=== PATIENT | male | born 1955 | race Caucasian/White ===

== ENCOUNTER 2023-02-16 18:15 | Emergency (ER) | payer MEDICARE, SELFPAY ==
[2023-02-16 18:23] VITALS: BP 169/90; PULSE 85; RESP 18; TEMP 36.7; O2SAT 99; BMI 20.9
--- NOTE | 2023-02-16 19:05 | ED.EYEPROB ---
HPI - Eye Problem General Chief complaint: Eye Problems Stated complaint: metal in eye Time Seen by Provider: 02/16/23 18:51 Source: patient Mode of arrival: ambulatory Limitations: no limitations History of Present Illness HPI Narrative: 67-year-old male presenting with right eye injury. Patient was working with metal when a fragment flew into his right eye. Since then, patient has been having irritation, pain discomfort. No photo or phonophobia. He has had tearing. Patient was wearing eye protection. His tetanus is not up-to-date and he does not wish to have a tetanus vaccine today. He has no allergies to medication is. Patient offers no acute complaints at this time other than is IP MD chief complaint: eye pain, eye redness and eye injury Onset (ago): hour(s) Onset description: sudden Duration: constant Location: right eye Eye Symptoms: redness, pain and foreign body sensation Mechanism: occurred while hammering/grinding Severity: moderate Related Data Previous Rx's Medication Instructions Recorded polymyxin B sulfate 10,000 2 drp ophthalmic (eye) QID 7 days 02/16/23 unit-trimethoprim 1 mg/mL eye #10 mL drops (Polytrim) Allergies Allergy/AdvReac Type Severity Reaction Status Date / Time No Known Allergies Allergy Verified 02/16/23 18:25 Physical Exam Vital Signs: Vital Signs: Last Vital Signs Temp 98.1 F 02/16/23 18:23 Pulse 85 02/16/23 18:23 Resp 18 02/16/23 18:23 BP 169/90 H 02/16/23 18:23 Pulse Ox 99 02/16/23 18:23 O2 Del Method Room Air 02/16/23 18:23 BMI result Body Mass Index 20.9 GEN: Well developed, no acute distress, alert, oriented HEENT: Normocephalic, atraumatic, normal external ears, nose appears normal Eyes: Bilateral conjunctival injection, corneal abrasion in the middle of the pupil. There is no foreign body present, fluorescein exam consistent with an abrasion, no foreign bodies identified with lid eversion of both upper and lower lids. Neck: Supple, no lymphadenopathy Respiratory: Talks in complete sentences, no respiratory distress Extremities: No clubbing cyanosis or edema Neurologic: No focal neurologic deficits, cranial nerves 2-12 intact, gait normal Skin: No rash Course Course Course Narrative: 67-year-old male presents with foreign body to right eye. On my evaluation, there is no foreign body present. For corneal abrasion was identified on examination. Patient does not wish to have his tetanus updated today. Will provide patient with prescription for topical antibiotics. Patient was instructed to follow-up with an applications specialist. Medical Decision Making Medical Decision Making MDM Narrative: Patient has a corneal abrasion from a foreign body that is no longer present. It was not removed by me. Patient will start topical antibiotics and follow-up with Ophthalmology. Differential Diagnosis Differential Diagnoses: The differential diagnosis associated with the presentation includes (Foreign body, corneal abrasion) Independent Historian Clinical information obtained from an independent historian. History obtained from or confirmed by: Spouse Discharge Plan Discharge Clinical Impression: Corneal abrasion Patient Disposition: Home, Self-Care Instructions: Corneal Abrasion (ED) Prescriptions: New polymyxin B sulf-trimethoprim [Polytrim] 10,000 unit- 1 mg/mL drops 2 drp ophthalmic (eye) QID 7 Days Qty: 10 0RF Rx Instructions: while awake; do not exceed 6 doses in 24 hours Referrals: Nolberto Stauffer [Physician] - 1 day
== END 2023-02-16 19:32 | disposition home or self-care (01) ==
PROVIDERS: Emergency Provider Emergency Medicine
DX: S05.01XA Injury of conjunctiva and corneal abrasion without foreign body, right eye, initial encounter (principal); X58.XXXA Exposure to other specified factors, initial encounter; Y93.9 Activity, unspecified; Y92.9 Unspecified place or not applicable; Y99.9 Unspecified external cause status
CPT/HCPCS: 99282; 99283